=== PATIENT | female | born 1990 | race Caucasian/White ===

== ENCOUNTER 2025-08-23 11:44 | Emergency (ER) | payer BC, MEDICAID ==
[~2025-08-23] VITALS: Ht 165.1 cm; Wt 82.7 kg
[2025-08-23 11:53] VITALS: BP 122/85; PULSE 85; RESP 16; TEMP 98.2; O2SAT 96
== END 2025-08-23 13:32 | disposition left against medical advice (07) ==
LOC: ER 11:44
DX: M79.605 Pain in left leg (principal); M79.604 Pain in right leg; Z53.21 Procedure and treatment not carried out due to patient leaving prior to being seen by health care provider